=== PATIENT | male | born 1975 | race Caucasian/White ===

== ENCOUNTER 2024-07-18 07:24 | Emergency (ER) | payer BC, OTHER ==
[2024-07-18] MEDS ORDERED: Sodium Chloride 0.9% 10 ML Syringe FLUSH PRN (07:44)
[2024-07-18] MEDS ORDERED: Sodium Chloride 0.9% 500 ML IV SCH (07:45)
[2024-07-18 08:23] LABS: HEMOGLOBIN 16.3 gm/dl (14.0-18.0); RED BLOOD CELL COUNT 5.11 M/mm3 (4.52-5.90)
[2024-07-18 08:24] LABS: BASOPHILS PERCENT AUTO 0.8 % (0.0-1.0); EOSINOPHILS PERCENT AUTO 4.3 % (0.0-6.0); HEMATOCRIT 47.1 % (42.0-52.0); IMMATURE GRAN PERCENT AUTO 0.3 % (0.0-0.4); LYMPHOCYTES ABSOLUTE AUTO 0.9 K/mm3 (1.0-4.8); LYMPHOCYTES PERCENT AUTO 23.5 % (24.0-44.0); MEAN CORPUSCULAR HEMOGLOBIN 31.9 pg (28.0-32.0); MEAN CORPUSCULAR HGB CONC 34.6 g/dl (32.0-36.0); MEAN CORPUSCULAR VOLUME 92.2 fl (83.0-99.0); MEAN PLATELET VOLUME 9.5 fl (9.4-12.4); MONOCYTES ABSOLUTE AUTO 0.5 K/mm3 (0.0-0.8); MONOCYTES PERCENT AUTO 13.5 % (0.0-8.0); NEUTROPHILS ABSOLUTE AUTO 2.3 K/mm3 (1.8-7.7); NEUTROPHILS PERCENT AUTO 57.6 % (41.0-71.0); PLATELET COUNT,PLT 316 K/mm3 (150-400)
[2024-07-18 08:25] LABS: EOSINOPHILS ABSOLUTE AUTO 0.2 K/mm3 (0.0-0.4); IMMATURE GRAN ABSOLUTE AUTO 0.01 K/mm3 (0.00-0.05)
[2024-07-18 08:29] LABS: A/G RATIO 1.1 (1-2); ALANINE AMINOTRANSFERASE,ALT 52 U/L (16-63); ALBUMIN 4.3 g/dl (3.4-5.0); ALKALINE PHOSPHATASE 64 U/L (46-116); ANION GAP 13.1 (5-15); ASPARTATE AMNIOTRANSFERASE,AST 30 U/L (15-37); BILIRUBIN TOTAL 0.7 mg/dL (0.2-1.0); BLOOD UREA NITROGEN,BUN 15 mg/dL (7-18); BUN/CREATININE RATIO 13.6 (14-18); CALCIUM 9.4 mg/dL (8.5-10.1); CARBON DIOXIDE,CO2 25 mEq/L (21-32); CHLORIDE,CL 103 mEq/L (98-107); CREATININE 1.1 mg/dL (0.7-1.3); EST CRCL DRUG DOSING (CG) 90.14 mL/min; ESTIMATED GFR 83 mL/min (>60); GLUCOSE RANDOM 102 mg/dL (70-99); POTASSIUM,K 4.1 mEq/L (3.5-5.1); PROTEIN TOTAL,TP 8.3 g/dl (6.4-8.2); SODIUM,NA 137 mEq/L (136-145)
[2024-07-18 08:32] LABS: TROPONIN I HIGH SENSITIVITY < 4 pg/mL (<=76)
[2024-07-18] MEDS: Aspirin 81 MG Tab.Chew PO ONE (08:52)
[2024-07-18] MEDS: hydrOXYzine HCl 25 MG Tab PO ONE (12:44)
== END 2024-07-18 12:50 | disposition home or self-care (01) ==
LOC: JD.ED 07:24
DX: R07.89 Other chest pain (principal); F43.9 Reaction to severe stress, unspecified; Z88.5 Allergy status to narcotic agent; Z91.041 Radiographic dye allergy status; Z79.899 Other long term (current) drug therapy
CPT/HCPCS: 36415; 71046; 80053; 84484; 85025; 93005; 99285; A9270